=== PATIENT | female | born 2000 | race Caucasian/White ===

== ENCOUNTER 2021-12-09 10:39 | Emergency (ER) | payer BC, MEDICAID ==
[~2021-12-09] VITALS: Ht 149.9 cm; Wt 77.1 kg
--- NOTE | 2021-12-09 10:52 | NUR ---
BIB FAMILY W/ C/O EPIGASTRIC PAIN SINCE THIS MORNING P/S 11/25, HISTORY OF ACID REFLUX. TO ER BED 3.
--- NOTE | 2021-12-09 11:09 | NUR ---
URINE SAMPLE COLLECTED AND SENT TO LAB
[2021-12-09] MEDS ORDERED: FAMOTIDINE/PF INJ 20 MG/2 ML VIAL IV ONE ×2 (11:48→12:00)
[2021-12-09] MEDS ORDERED: ONDANSETRON HCL/PF 4 MG/2 ML VIAL ONE (11:48)
[2021-12-09] MEDS ORDERED: ONDANSETRON HCL/PF 4 MG/2 ML VIAL IVP ONE (12:00)
[2021-12-09] MEDS ORDERED: IV NS 0.9% 1,000 ML BAG IV ONE (12:00)
--- NOTE | 2021-12-09 12:13 | NUR ---
CHEMISTRY INSTRUCTOR AT BEDSIDE FOR US
[2021-12-09 12:28] LABS: BASOPHILS # (AUTO) 0.1 K/uL (0.0-0.2); BASOPHILS % (AUTO) 0.5 % (0.0-2.0); EOSINOPHILS % (AUTO) 0.2 % (0.0-6.0); HEMATOCRIT 40 % (33-45); HEMOGLOBIN 13.2 g/dL (11.5-14.8); LYMPHOCYTES # (AUTO) 2.4 K/uL (0.8-4.8); LYMPHOCYTES % (AUTO) 18.4 % (20.0-44.0); MEAN CORPUSCULAR HGB CONC 33 g/dl (31.0-36.0); MEAN CORPUSCULAR VOLUME 87 fL (82-100); MONOCYTES # (AUTO) 0.6 K/uL (0.1-1.30); MONOCYTES % (AUTO) 4.4 % (2.0-12.0); NEUTROPHILS # (AUTO) 9.8 K/uL (1.8-8.9); NEUTROPHILS % (AUTO) 76.5 % (43.0-81.0); PLATELET COUNT (AUTO) 344 K/uL (150-450); RED BLOOD CELL COUNT(AUTO) 4.59 MIL/uL (4.0-5.2); WHITE BLOOD COUNT (AUTO) 12.8 K/uL (4.3-11.0)
--- NOTE | 2021-12-09 13:11 | NUR ---
URINE SPECIMEN CONFIRMED BY LAB, OBTAINED EARLIER.
[2021-12-09 13:27] LABS: BILIRUBIN,URINE SMALL (NEGATIVE); COLOR,URINE YELLOW (YELLOW); LEUKOCYTE ESTERASE ,URINE NEGATIVE (NEGATIVE); NITRITE, URINE NEGATIVE (NEGATIVE); PROTEIN,URINE NEGATIVE (NEGATIVE); UGLUCOSE NEGATIVE (NEGATIVE); UROBILINOGEN,URINE 0.2 EU/dL (0.2)
--- NOTE | 2021-12-09 13:35 | NUR ---
FOLLOWED UP CHEMISTRY RESULT W/ LAB; 20-30MINS FOR PROCESSING
[2021-12-09 13:50] LABS: BACTERIA,URINE 1+ /HPF (None Seen)
[2021-12-09 13:59] LABS: CALCIUM, SERUM 8.7 mg/dL (8.5-10.1); CARBON DIOXIDE 20 mmol/L (21-32); CHLORIDE 106 mmol/L (98-107); CREATININE 0.6 mg/dL (0.6-1.3); GLUCOSE 88 mg/dL (74-106); POTASSIUM 4.4 mmol/L (3.5-5.1); SODIUM SERUM 135 mmol/L (136-145); UREA NITROGEN, BLOOD 10 mg/dL (7-18)
[2021-12-09 14:05] LABS: ALANINE AMINOTRANSFERASE 17 U/L (12-78); ALKALINE PHOSPHATASE 75 U/L (46-116); ASPARTATE AMINOTRANSFERASE 29 U/L (15-37); BILIRUBIN,TOTAL 0.3 mg/dL (0.2-1.0); TOTAL PROTEIN, SERUM 7.8 g/dL (6.4-8.2)
[2021-12-09 14:14] LABS: ALBUMIN 3.2 g/dL (3.4-5.0); LIPASE 99 U/L (73-393)
[2021-12-09] MEDS ORDERED: FAMO-131 PO (14:54)
--- NOTE | 2021-12-09 15:15 | NUR ---
IV removed. Catheter intact and site benign. Pressure and 4x4 applied to site. No bleeding noted.
--- NOTE | 2021-12-09 15:18 | NUR ---
Patient discharged to home in stable condition. Written and verbal after care instructions given. Patient verbalizes understanding of instruction.
[2021-12-09 15:19] VITALS: BP 124/73
== END 2021-12-09 15:19 | disposition home or self-care (01) ==
LOC: ER 10:43
DX: R10.13 Epigastric pain (principal); R10.11 Right upper quadrant pain; J45.909 Unspecified asthma, uncomplicated; Z79.899 Other long term (current) drug therapy
CPT/HCPCS: 99284; 96374; 76705; 96361; 96375; 93005; 85025; 80048; 87086; 83690; 80076; 84703; 81001; 36415; 84484; J3490; J2405; J7030

== ENCOUNTER 2022-07-31 10:36 | Emergency (ER) | payer BC ==
[~2022-07-31] VITALS: Ht 149.9 cm; Wt 71.2 kg
[2022-07-31 10:36] VITALS: BP 114/70
[~2022-07-31 10:36] MED LIST: FAMO-131 PO
[2022-07-31] MEDS ORDERED: IV NS 0.9% 1,000 ML IV ONE (11:30)
--- NOTE | 2022-07-31 11:45 | NUR ---
BLOOD DRAWN, SWAB FOR COVID19 AND RAPID STREP SENT TO LAB
[2022-07-31 12:07] LABS: BASOPHILS # (AUTO) 0.1 K/uL (0.0-0.2); BASOPHILS % (AUTO) 0.6 % (0.0-2.0); EOSINOPHILS % (AUTO) 0.1 % (0.0-6.0); HEMATOCRIT 39 % (33-45); HEMOGLOBIN 12.4 g/dL (11.5-14.8); LYMPHOCYTES # (AUTO) 1.3 K/uL (0.8-4.8); LYMPHOCYTES % (AUTO) 11.2 % (20.0-44.0); MEAN CORPUSCULAR HGB CONC 32 g/dl (31.0-36.0); MEAN CORPUSCULAR VOLUME 89 fL (82-100); MONOCYTES # (AUTO) 0.6 K/uL (0.1-1.30); MONOCYTES % (AUTO) 5.4 % (2.0-12.0); NEUTROPHILS # (AUTO) 9.6 K/uL (1.8-8.9); NEUTROPHILS % (AUTO) 82.7 % (43.0-81.0); PLATELET COUNT (AUTO) 282 K/uL (150-450); RED BLOOD CELL COUNT(AUTO) 4.36 MIL/uL (4.0-5.2); WHITE BLOOD COUNT (AUTO) 11.6 K/uL (4.3-11.0)
[2022-07-31 12:32] LABS: ALBUMIN 3.5 g/dL (3.4-5.0); BILIRUBIN,DIRECT 0.1 mg/dL (0.0-0.2); BILIRUBIN,TOTAL 0.6 mg/dL (0.2-1.0); CALCIUM, SERUM 9.3 mg/dL (8.5-10.1); CREATININE 0.6 mg/dL (0.6-1.3); POTASSIUM 4.3 mmol/L (3.5-5.1)
--- NOTE | 2022-07-31 13:13 | NUR ---
ivf stopped at 1213. WELL TOLERATED
[2022-07-31] MEDS ORDERED: FAMO-131 PO (13:24)
[2022-07-31] MEDS ORDERED: AMOX500C2 PO (13:24)
== END 2022-07-31 13:45 | disposition home or self-care (01) ==
LOC: ER 10:46
DX: J02.9 Acute pharyngitis, unspecified (principal); R74.01 Elevation of levels of liver transaminase levels; R10.9 Unspecified abdominal pain; J45.909 Unspecified asthma, uncomplicated; K21.9 Gastro-esophageal reflux disease without esophagitis; G89.29 Other chronic pain; Z20.822 Contact with and (suspected) exposure to COVID-19
CPT/HCPCS: 99283; 96360; 87426; 85025; 80048; 83690; 80076; 36415; 87880; J7030; C9803; 86403-TC